=== PATIENT | male | born 1985 | race Caucasian/White ===

== ENCOUNTER 2016-10-05 09:34 | Emergency (ER) | payer SELFPAY ==
[2016-10-05 09:48] VITALS: TEMP 97.8; BMI 29.2
--- NOTE | 2016-10-05 10:04 | EDPRACDOC ---
- General Information Chief Complaint: Back Pain Stated Complaint: BACK PAIN Time Seen by Provider: 10/05/16 09:42 Information Source: Patient Mode Of Arrival: Car Home Medications: Home Medications Cyclobenzaprine HCl [Flexeril] 10 mg PO Q8H #14 tab 10/05/16 Hydrocodone Bit/Acetaminophen [Hydrocodon-Acetaminophen 5-325] 1 tab PO Q6H PRN #10 tab 10/05/16 Allergies/Adverse Reactions: Allergies Allergy/AdvReac Type Severity Reaction Status Date / Time No Known Allergies Allergy Verified 10/05/16 09:46 - History of Present Illness Onset: 3 weeks HPI: Patient reports that he does a lot of lifting at his job, reports lumbar spine pain x 2-3wks. Denies numbness/tingling, normal distal exam/DTRs, pulses/cap refills. No change in bowel or bladder. No urinary symptoms. Pain with movement and palpation. No abdominal pain/nausea/vomiting. Pain Location: Reports: Lumbar Pain Radiates To: Reports: None Pain Caused By: Reports: Lifting Circumstances: Reports: Work-related Pain Severity: Reports: Mild Pain Quality: Reports: Aching Worsened By: Reports: Movement, Twisting Associated Signs and Symptoms: Reports: None ED Past Medical History - History Reviewed Yes Nurses notes reviewed and agree except as marked No Past Medical History: Yes Patient has no past medical history - Patient Medical History Psychological History: Denies: Depression Surgical History: Reports: No Significant History - Social Medical History Smoking Status: Heavy tobacco smoker (5 or more cigarettes/day or daily pipe/ cigar) ETOH: None Substance Abuse: None Lives In: Home EDM Review of Systems - Review of Systems ROS Negative Except as Marked: Yes All systems reviewed and were negative except as marked Constitutional: No Symptoms Reported Eyes: No Symptoms Reported Ears: No Symptoms Reported Throat: No Symptoms Reported Respiratory: No Symptoms Reported Cardiovascular: No Symptoms Reported Gastrointestinal: No Symptoms Reported Genitourinary: No Symptoms Reported Neurological: No Symptoms Reported Musculoskeletal: Back Integumentary: No Symptoms Reported - Physical Exam Constitutional: Alert (Awake), No apparent distress Oriented to: Time, Person, Place Last recorded Vital Signs: Last Vital Signs Temp 97.8 F 10/05/16 09:44 Pulse 104 10/05/16 09:44 Resp 16 10/05/16 09:44 BP 153/95 10/05/16 09:44 Pulse Ox 98 10/05/16 09:44 Oxygen Pulse Oxygen Saturation 98 O2 Device Oxygen Flow Rate Fraction of Inspired Oxygen ( FIO2) - HEENT Head: Normal ( normocephalic) Eye Exam: Normal (PERRL, EOMI, Sclera white) Nose: No Symptoms Reported (septum midline) Neck: Normal (FROM, trachea at midline) - Respiratory/Cardiovascular Respiratory: Normal - CTA (BBS clear to auscultation without adventitious sounds ) Cardiovascular: Normal (RRR without murmur, gallop or rub) - GI Auscultation: Normal (NABS) - Musculoskeletal Back: Lumbar TTP, No Palpable Step-off. negative: Ecchymosis, CVA Tenderness, Lumbar Step-off Extremities: Normal (Normal tone, Pulses 2+ No cyanosis or edema, FROM) - Integumentary Skin: Normal, Warm, Dry Lymphatics: Normal (no adenopathy) - Neurologic Memory Impaired: Normal Motor Function: Normal (Normal tone, Pulses 2+ No cyanosis or edema, FROM) Cranial Nerve: Normal (CN II-X11 intact sensation, strength 5/5) Mood Description: Normal Thought: Coherent ED Back Exam - Neurologic Motor Deficit: None (strength 5/5, sensation nl) Reflexes: Normal (CN II-X11 intact) - Musculoskeletal Cervical: Normal Thoracic: Normal Lumbar: Tender Midline: Tender Paraspinous: Tender Straight Leg Raise: Negative Pelvis: Normal - Re-evaluation Re-evaluation 1 Re-evaluation Time: 11:13 Results of negative xray discussed. Followup with Ortho, rest, warm compresses, medications for home discussed. Return for symptoms. Decision Time to Discharge: 11:24 - Departure Disposition: Home Condition: Good Final Diagnosis: Low back strain Qualifiers: Encounter type: initial encounter Qualified Code(s): S39.012A - Strain of muscle, fascia and tendon of lower back, initial encounter Instructions: Core Strengthening Exercises (GEN), Back Pain, Thoracic (Lumbar) Strain Education/Counseling Given To: Patient Education/Counseling Given Regarding: Diagnosis, Treatment, Prognosis, Follow Up Referrals: None,No Provider [Primary Care Provider] - One Week Jose Carlos Álvarez MD [Staff Physician] - One Week Jose L Bains MD [Staff Physician] - One Week Prescriptions: Cyclobenzaprine HCl [Flexeril] 10 mg PO Q8H #14 tab Hydrocodone Bit/Acetaminophen [Hydrocodon-Acetaminophen 5-325] 1 tab PO Q6H PRN #10 tab PRN Reason: Pain Additional Instructions: Please followup with a primary provider to establish care. Return to ED if symptoms worsen/change or concerns arise. Rest, use warm compresses to low back 3-4x daily for 15-20min each time.
[2016-10-05 11:36] VITALS: BP 145/88; PULSE 86
--- NOTE | 2016-10-05 11:44 | DIRPT ---
CLINICAL DATA: Low back pain 3 weeks. No injury. EXAM: LUMBAR SPINE - COMPLETE 4+ VIEW COMPARISON: None. FINDINGS: Vertebral body alignment, heights and disc space heights are normal. No compression fracture or subluxation. IMPRESSION: Negative. Electronically Signed By: Jus Baumann M.D. On: 10/05/2016 11:42
== END 2016-10-05 11:30 | disposition home or self-care (01) ==
LOC: ED 09:34
DX: S39.012A Strain of muscle, fascia and tendon of lower back, initial encounter (principal); X58.XXXA Exposure to other specified factors, initial encounter; Y93.9 Activity, unspecified
CPT/HCPCS: 72110; 99283